=== PATIENT | male | born 1975 | race Caucasian/White ===

== ENCOUNTER 2022-10-16 09:31 | Inpatient (IN) | payer MEDICAID, SELFPAY ==
[2022-10-16 09:31] VITALS: BP 150/96; PULSE 83; RESP 16; TEMP 36.3; O2SAT 99; BMI 45.8
--- NOTE | 2022-10-16 10:39 | EDS_ITS ---
HPI History of Present Illness Chief Complaint: Substance Abuse Informant: patient Onset/Context/Timing Onset: Yesterday Context: Gradual Onset Timing: Continuous Worsened by: Nothing Relieved by: Nothing Associated Symptoms Associated Symptoms: Positive for vomiting*, diarrhea* and fever*; Negative for rash*, seizure, tremor, palpatations, change in mental status, suicidal ideation or homicidal ideation Narrative Narrative: Patient presents requesting opiate detox. Patient states he uses oral fentanyl. Patient states he uses approximately 8 to 10 pills/day. Patient states his last use was yesterday at approximately 5 PM. Patient admits to some nausea, vomiting, diarrhea. Patient admits to some subjective fevers and chills. Patient denies any suicidal or homicidal ideations. Patient denies any seizures or palpitations. Patient denies any prior detox. [facility] Medical History Arthritis Carpal tunnel syndrome on both sides Congestive heart failure (CHF) DDD (degenerative disc disease) Diabetes DVT (deep venous thrombosis) History of kidney cancer Hx of bladder cancer Home Medications cholecalciferol (vitamin D3) 25 mcg (1,000 unit) tablet (Vitamin D3) 25 mcg PO DAILY SUPPLEMENT 10/16/22 [History Last Taken 1 Week Ago ~10/09/22] metformin 500 mg tablet,extended release 24 hr 1,000 mg PO DAILY DIABETES 10/16/22 [History Last Taken 10/15/22] omega-3 300 mg-dha 120 mg-epa 180 mg-fish oil 1,000 mg capsule 1 cap PO DAILY SUPPLEMENT 10/16/22 [History Last Taken 10/15/22] Allergy/AdvReac Type Severity Reaction Status Date / Time acetaminophen [From [place]] AdvReac Upset Verified 10/16/22 09:35 Stomach hydrocodone [From [place]] AdvReac Upset Verified 10/16/22 09:35 Stomach naproxen AdvReac Upset Verified 10/16/22 09:35 Stomach Surgical History History of right nephrectomy Social History Smoking Status: Current every day smoker tobacco type: cigarettes ROS ROS ED Constitutional Constitutional ED: Reports chills, subjective and sweats; Denies fever(s) Eyes Eyes: Denies blurry vision or change in vision ENT ENT ED: Reports rhinorrhea; Denies sore throat Cardiovascular Cardiovascular: Denies chest pain or palpitations Respiratory/Chest Respiratory/Chest: Reports cough; Denies dyspnea Gastrointestinal Gastrointestinal: Reports diarrhea, nausea and vomiting Genitourinary Genitourinary ED: Reports hematuria and urinary frequency; Denies dysuria Musculoskeletal Musculoskeletal: Reports back pain and neck pain Integumentary Denies abscess or rash Neurologic Neurologic: Denies headache(s) or weakness Allergic/Immunologic Allergic/Immunologic ED: Denies mouth swelling or urticaria EXAM Physical Exam Const Vital Signs: 10/16/22 09:31 Temperature 97.4 F L Temperature Source Temporal Pulse Rate 83 Respiratory Rate 16 Blood Pressure 150/96 H Blood Pressure Mean 114 Pulse Ox 99 Oxygen Delivery Method Room Air Positive well nourished, well developed and obese General Appearance ED: well developed and NAD Nutritional Appearance: obese HEENT Reports moist mucous membranes Neck supple and no JVD Resp normal respiratory effort and clear to auscultation bilaterally Cardio regular rate, regular rhythm and no murmurs GI normal to inspection, nondistended, normoactive bowel sounds and non-tender Palpation: soft Extremity normal to inspection Extremity Narrative: There is mild tenderness over the right calf. There is some pain with dorsiflexion of the right ankle. There is mild edema. Pedal pulses are equal bilaterally. Sensation was intact to light touch in all digits. Capillary refill was less than 2 seconds in all digits. General Extremety ED: Yes tenderness Neuro oriented x3, CN's II-XII intact bilaterally and no sensory deficits noted Sensorium / Orientation: alert Motor Exam: strength 5/5 throughout Psych mental status grossly normal Skin no rashes or lesions noted MDM MDM MDM Narrative Medical decision making narrative: Basic labs were obtained. Venous duplex of the right lower extremity was obtained. There is no evidence of DVT. Bleeding return to the CBC was within normal limits. Comprehensive metabolic profile was essentially within normal limits. Anion gap was normal. Urine tox screen was negative. Serum alcohol level was negative. Case was discussed with the hospitalist. He will admit the patient for detox. Patient understood and was agreeable with plan. All quest ions were answered. Lab Data Attestation: I reviewed the patient's lab results. Labs: Laboratory Results - last 24 hr 11/10/16/22 10/16/22 11:30 11:39 11:39 WBC 10.0 RBC 5.27 Hgb 15.9 Hct 47.3 MCV 89.8 MCH 30.2 MCHC 33.6 RDW Std Deviation 42.7 RDW Coeff of Adi 13.0 Plt Count 230 MPV 10.0 Immature Gran % (Auto) 0.300 Neut % (Auto) 69.3 Lymph % (Auto) 22.4 [place] % (Auto) 6.4 Eos % (Auto) 1.2 Baso % (Auto) 0.4 Absolute Neuts (auto) 7.0 Absolute Lymphs (auto) 2.25 Nucleated RBC % 0 Sodium 134 L Potassium 4.5 Chloride 102 Carbon Dioxide 28.0 Anion Gap 4 L BUN 14 Creatinine 1.01 Estim Creat Clear Calc 90.42 Est GFR (MDRD) Af Amer 101 Est GFR (MDRD) Non-Af 84 BUN/Creatinine Ratio 13.9 Glucose 169 H Calcium 9.0 Total Bilirubin 0.40 AST 13 L ALT 24 Alkaline Phosphatase 82 Total Protein 7.9 Albumin 3.3 Globulin 4.6 H Albumin/Globulin Ratio 0.7 L Urine Opiates Screen NEGATIVE Urine Methadone Screen NEGATIVE Ur Barbiturates Screen NEGATIVE Ur Phencyclidine Scrn NEGATIVE Ur Amphetamines Screen NEGATIVE MDMA (Ecstasy) Screen NEGATIVE U Benzodiazepines Scrn NEGATIVE Urine Cocaine Screen NEGATIVE U Cannabinoids Screen NEGATIVE Ur Drug Screen Comment Ethyl Alcohol 10/16/22 11:39 WBC RBC Hgb Hct MCV MCH MCHC RDW Std Deviation RDW Coeff of Adi Plt Count MPV Immature Gran % (Auto) Neut % (Auto) Lymph % (Auto) [place] % (Auto) Eos % (Auto) Baso % (Auto) Absolute Neuts (auto) Absolute Lymphs (auto) Nucleated RBC % Sodium Potassium Chloride Carbon Dioxide Anion Gap BUN Creatinine Estim Creat Clear Calc Est GFR (MDRD) Af Amer Est GFR (MDRD) Non-Af BUN/Creatinine Ratio Glucose Calcium Total Bilirubin AST ALT Alkaline Phosphatase Total Protein Albumin Globulin Albumin/Globulin Ratio Urine Opiates Screen Urine Methadone Screen Ur Barbiturates Screen Ur Phencyclidine Scrn Ur Amphetamines Screen MDMA (Ecstasy) Screen U Benzodiazepines Scrn Urine Cocaine Screen U Cannabinoids Screen Ur Drug Screen Comment Ethyl Alcohol < 3.0 Discharge Plan Triage Chief Complaint: Substance Abuse ED Provider: Thomas Briones Dx/Rx/DC Orders Clinical Impression: Opiate withdrawal, Substance abuse Prescriptions: No Action metformin 500 mg Tablet Extended Release 24 Hr 1,000 mg PO DAILY cholecalciferol (vitamin D3) [Vitamin D3] 25 mcg (1,000 unit) Tablet 25 mcg PO DAILY omega 5-[id number]-fish oil 300 mg (120 mg- 180mg)-1,000 mg capsule 1 cap PO DAILY Primary Care Provider: REGIS WATTERS Referrals: REGIS WATTERS [Other] Disposition Disposition: Acute Care Hospital [facility]
--- NOTE | 2022-10-16 10:47 | VDLE_ITS ---
Reason For Study: LEG PAIN RIGHT LEFT GSV is normal. CFV is compressible, spontaneous, phasic, CFV is compressible, spontaneous, phasic, competent, and demonstrates normal competent and demonstrates normal augmentation. augmentation. FV is compressible, spontaneous, phasic, competent and demonstrates normal augmentation. POP V is compressible, spontaneous, phasic, competent and demonstrates normal augmentation. T/P Trunk is compressible. PTV is compressible. RT PerV is compressible. Procedure This is a venous duplex using B-mode, color flow and spectral Doppler. Exam performed portable in ED. The exam was diagnostic. A preliminary report was called and/or faxed to . VL/Venous Duplex US, Unilateral Interpretation Summary There is no evidence of right lower extremity deep vein thrombosis. Right great saphenous vein appears patent and compressible segmentally. Normal flow patterns left common f emoral vein Ordering Physician: Thomas Briones Performed By: Atul De La Cruz RVT
[2022-10-16 11:43] LABS: Absolute Lymphocyte Count 2.25 X10^3/uL (0.83-4.51); Basophil# 0.04 X10^3/uL; Basophil% 0.4 % (0-1); Eosinophil# 0.12 X10^3/uL; Eosinophils% 1.2 % (0-5); Hematocrit 47.3 % (40-54); Hemoglobin 15.9 g/dL (13.0-16.5); Lymphocyte # 2.25 X10^3/ul (0.83-4.51); Lymphocyte % 22.4 % (19-41); Mean Corp Hgb Conc 33.6 g/dL (32-36); Mean Corpuscular Hgb 30.2 pg (27.0-32.0); Mean Corpuscular Volume 89.8 fL (80-94); Monocyte# 0.64 X10^3/uL; Monocyte% 6.4 % (0-10); NRBC Flagged by Analyzer 0 % (0-5); Neutrophil # 6.95 X10^3/uL (2.7-7.7); Neutrophil % 69.3 % (47-70); Platelet Count 230 K/mm3 (150-450); RBC Distribution Width SD 42.7 fl (35.1-43.9); Red Blood Count 5.27 M/mm3 (4.6-6.2)
[2022-10-16 11:56] LABS: International Normalized Ratio 1.1
[2022-10-16 11:58] LABS: Alcohol, Blood (Medical)-Serum < 3.0 mg/dL
[2022-10-16 12:01] LABS: ALB/GLOB Ratio 0.7 RATIO (0.9-2.4); AST(SGOT) 13 U/L (15-37); Alanine Aminotransfer ALT/SGPT 24 U/L (16-61); Albumin, Serum 3.3 g/dL (3.2-5.0); Alkaline Phosphatase 82 U/L (45-117); Anion Gap 4 (5-15); BUN 14 mg/dL (7-18); BUN/Creat Ratio 13.9 RATIO (10-20); Chloride 102 mmol/L (98-107); Creatinine, Serum 1.01 mg/dL (0.70-1.30); EST Glomerular Filtration Rate 84 mL/min (>60); Est Glom Filt Rate - Afr Amer 101 mL/min (>60); Estimated Creatinine Clearance 90.42 ml/min; Globulin 4.6 g/dL (2.2-4.2); Glucose 169 mg/dL (74-106); Potassium 4.5 mmol/L (3.5-5.1); Protein, Total 7.9 g/dL (6.4-8.2); Sodium Level 134 mmol/L (136-145)
[2022-10-16 12:10] LABS: Amphetamine Urine VISTA NEGATIVE (<1000 ng/mL); Barbiturate Urine VISTA NEGATIVE (< 200 ng/mL); Benzodiazepine Urine VISTA NEGATIVE (< 200 ng/mL); Cocaine Urine VISTA NEGATIVE (< 300 ng/mL); Ecstacy Urine VISTA NEGATIVE (< 500 ng/mL); Methadone Urine VISTA NEGATIVE (< 300 ng/mL); PCP Urine VISTA NEGATIVE (< 25 ng/mL); THC Urine VISTA NEGATIVE (< 50 ng/mL); Vista UDS pH Range 7
[2022-10-16 12:44] LABS: Partial Thromboplast Time 28.1 Seconds (24.1-36.2)
--- NOTE | 2022-10-16 13:28 | PCM.HP.STD ---
[facility] - General General Date of Admission: 10/16/22 Date of Service: 10/16/22 Chief Complaint: opiate withdrawal treatment. HPI Narrative KAY WATSON, is a 46 M who presents requesting treatment for acute opiate withdrawal. Patient takes 8 to 10 30 mg tablets of fentanyl. He states the fentanyl is pressed by dealer that he gets some from him. He is unsure about the production quality manager of the actual fentanyl. His last use was 5 PM yesterday. His current symptoms are some bunnies, some nausea. [facility] Medical History (Updated 10/16/22 @ 13:[address] Thomas Fermin DO) Arthritis Cancer with unknown primary site Carpal tunnel syndrome on both sides Congestive heart failure (CHF) DDD (degenerative disc disease) Diabetes DVT (deep venous thrombosis) History of kidney cancer Hx of bladder cancer Home Medications cholecalciferol (vitamin D3) 25 mcg (1,000 unit) tablet (Vitamin D3) 25 mcg PO DAILY SUPPLEMENT 10/16/22 [History Last Taken 1 Week Ago ~10/09/22] metformin 500 mg tablet,extended release 24 hr 1,000 mg PO DAILY DIABETES 10/16/22 [History Last Taken 10/15/22] omega-3 300 mg-dha 120 mg-epa 180 mg-fish oil 1,000 mg capsule 1 cap PO DAILY SUPPLEMENT 10/16/22 [History Last Taken 10/15/22] Allergy/AdvReac Type Severity Reaction Status Date / Time acetaminophen [From [place]] AdvReac Upset Verified 10/16/22 09:35 Stomach hydrocodone [From [place]] AdvReac Upset Verified 10/16/22 09:35 Stomach naproxen AdvReac Upset Verified 10/16/22 09:35 Stomach Family History (Updated 10/16/22 @ 13:[address] Thomas Fermin DO) Mother Addiction Surgical History History of right nephrectomy Social History (Updated 10/16/22 @ 13:[address] Thomas Fermin DO) Smoking Status: Heavy Smoker (>10/day) SHANAE Caceres Has chronic swelling in his lower extremities with the right being greater than the left after history of DVT. All review of systems were negative except as mentioned above in the history of present illness and the other review of systems. Vital Signs Vital Signs Vital Signs: 10/16/22 09:31 Temperature 36.3 C L Temperature Source Temporal Pulse Rate 83 Respiratory Rate 16 Blood Pressure 150/96 H Blood Pressure Mean 114 Pulse Ox 99 Oxygen Delivery Method Room Air Weight Weight: 140.614 kg Body Mass Index (BMI) 45.8 Physical Exam Const alert and no apparent distress Constitutional Narrative: Up in a chair. No distress. HEENT normocephalic and head/scalp atraumatic Resp normal respiratory effort, no retractions, no use of accessory muscles and clear to auscultation bilaterally Cardio regular rate, regular rhythm, S1 normal heart sound and S2 normal heart sound GI normal to inspection, nondistended, normoactive bowel sounds, soft to palpation, non-tender and non-distended Extremity Extremity Narrative: Lymphedematous changes in lower extremities with the right lower extremity being greater than the left Neuro oriented x3 Results Lab / Micro Data Result Diagrams: 10/16/22 11:39 10/16/22 11:39 Labs: Laboratory Results - last 24 hr 10/16/22 11:30: Urine Opiates Screen NEGATIVE, Urine Methadone Screen NEGATIVE, Ur Barbiturates Screen NEGATIVE, Ur Phencyclidine Scrn NEGATIVE, Ur Amphetamines Screen NEGATIVE, MDMA (Ecstasy) Screen NEGATIVE, U Benzodiazepines Scrn NEGATIVE, Urine Cocaine Screen NEGATIVE, U Cannabinoids Screen NEGATIVE, Ur Drug Screen Comment 10/16/22 11:39: WBC 10.0, RBC 5.27, Hgb 15.9, Hct 47.3, MCV 89.8, MCH 30.2, MCHC 33.6, RDW Std Deviation 42.7, RDW Coeff of Adi 13.0, Plt Count 230, MPV 10.0, Immature Gran % (Auto) 0.300, Neut % (Auto) 69.3, Lymph % (Auto) 22.4, [place] % (Auto) 6.4, Eos % (Auto) 1.2, Baso % (Auto) 0.4, Absolute Neuts (auto) 7.0, Absolute Lymphs (auto) 2.25, Nucleated RBC % 0 10/16/22 11:39: PT 14.0, INR 1.1, APTT 28.1 10/16/22 11:39: Sodium 134 L, Potassium 4.5, Chloride 102, Carbon Dioxide 28.0, Anion Gap 4 L, BUN 14, Creatinine 1.01, Estim Creat Clear Calc 90.42, Est GFR (MDRD) Af Amer 101, Est GFR (MDRD) Non-Af 84, BUN/Creatinine Ratio 13.9, Glucose 169 H, Calcium 9.0, Total Bilirubin 0.40, AST 13 L, ALT 24, Alkaline Phosphatase 82, Total Protein 7.9, Albumin 3.3, Globulin 4.6 H, Albumin/Globulin Ratio 0.7 L 10/16/22 11:39: Ethyl Alcohol < 3.0 Assessment & Plan Assessment/Plan (1) Opiate withdrawal: PLAN: Initiate buprenorphine taper as well as additional medications to help with withdrawal symptoms. Addiction medicine to see and to facilitate outpatient program. Patient is here with a friend who is his roommates and the plan is to quit together as they both use fentanyl. States his friend does not use alcohol. I talked to the patient to that if the friend has to leave earlier or later what his backup plan. He states he does not have anyone to contact. (2) DVT (deep venous thrombosis): PLAN: Patient had a history of a DVT back in October 2021. Was receiving injections with enoxaparin which is remained was giving him but then the roommate moved out and stopped giving insulin the patient could not muster the wherewithal to give himself a Lovenox injection so stopped. So patient has roughly been without anticoagulation for 8 to 9 months. Duplex was performed the emergency room which was reportedly negative. (3) Congestive heart failure (CHF): PLAN: Unclear type Compensated this time Patient had been taking some medication for his heart failure that was making him loopy that he stopped taking it. He does not know what that medication was. We will request records from [place] (4) Diabetes: PLAN: Type II Continue with metformin Check an A1c Sliding scale insulin (5) Cancer with unknown primary site: PLAN: I am not sure if this is truly unknown where the patient just does not know what type cancer he has. He has a reported history of kidney and bladder cancer. Is unclear if this is the cancer is referring to her if this is a completely different cancer that is not been fully evaluated. Patient has not been following up with oncology. Request records from [place] PLAN: Plan VTE prophylaxis: Given the patient's history of DVT and cancer, will initiate enoxaparin. Charges/Coding Visit Charges Inpatient E&M: 18621 Init Hosp L2
[2022-10-16 13:39] VITALS: BP 150/96; PULSE 83; RESP 16; TEMP 36.3; O2SAT 99
[2022-10-16 14:12] LABS: Hemoglobin A1c 7.4 % (3.8-5.6)
[2022-10-16 14:41] VITALS: O2SAT 96
[2022-10-16 14:54] VITALS: BMI 45.8
[2022-10-16 15:09] VITALS: BP 143/90; PULSE 77; RESP 18; TEMP 36.4; O2SAT 96
[2022-10-16] MEDS: Buprenorphine HCl 2 MG TAB.SUBL SL (16:24)
[2022-10-16] MEDS: Gabapentin 300 MG Capsule PO (16:25)
[2022-10-16] MEDS: Methocarbamol 750 MG Tablet 1500 MG PO (16:25)
[2022-10-16] MEDS: cloNIDine HCl 0.1 MG Tablet PO (16:28)
[2022-10-16 17:10] LABS: Bedside Glucose 139 mg/dL (74-106)
--- NOTE | 2022-10-16 17:12 | ADDICTION ---
Client is a 46 year old male who was admitted this afternoon. He reports seeking detox on his own decision. Denies legal consequences. He is unemployed d/t health issues. He is with 3 adult children. Client is pleasant, answering all questions asked. Client reports he has extensive medical history that has led to opioid addiction. He shared his medical issues include Cancer (Bladder/kidney), Arthritis, Carpal Tunnel, Back issues. He reported he was informed he has cancer somewhere in his body however his heart is too weak for further testing. This is his first time addressing AoD use. He has refused all referrals for AoD treatment. He shared he is aware of the 12-step meetings as his mother and step-father are both in recovery. He feels he has adequate sober support with family and his roommate (who is also seeking AoD treatment). This nurse offered peer support visit, which client refused. No referrals made d/t client refusing.
[2022-10-16] MEDS: Loperamide 2 MG Capsule PO (18:55)
[2022-10-16] MEDS: Dicyclomine 10 MG Capsule 20 MG PO (18:55)
[2022-10-16] MEDS: hydrOXYzine PAM 25 MG Capsule 50 MG PO (18:55)
[2022-10-16] MEDS: traZODone 100 MG Tablet PO (20:17)
[2022-10-16 21:09] VITALS: BP 119/76; PULSE 77; RESP 16; TEMP 36.7; O2SAT 98
[2022-10-17] MEDS: Methocarbamol 750 MG Tablet 1500 MG PO ×4 (00:20→20:09)
[2022-10-17] MEDS: cloNIDine HCl 0.1 MG Tablet PO ×2 (00:20→15:54)
[2022-10-17] MEDS: Buprenorphine HCl 2 MG TAB.SUBL SL ×4 (00:20→23:47)
[2022-10-17] MEDS: hydrOXYzine PAM 25 MG Capsule 50 MG PO (00:55)
[2022-10-17] MEDS: Gabapentin 300 MG Capsule PO ×3 (01:58→20:10)
[2022-10-17 03:09] VITALS: BP 116/71; PULSE 76; RESP 16; TEMP 36.5; O2SAT 94
--- NOTE | 2022-10-17 06:14 | PN.HOSP_ITS ---
Subjective Subjective Rough night due to back pain. Objective Data Objective Data Vital Signs: Vital Signs Temp Pulse Resp BP Pulse Ox O2 Del Method 36.5 C L 76 16 116/71 94 Room Air 10/17/22 03:09 10/17/22 03:09 10/17/22 03:09 10/17/22 03:09 10/17/22 03:09 10/17/22 03:09 Oxygen Delivery Method Room Air Weight: 140.614 kg Body Mass Index (BMI) 45.8 Intake & Output: Intake and Output for Last 24 Hours 10/15/22 10/16/22 10/17/22 23:59 23:59 23:59 Intake Total 700 / 700 Balance 700 / 700 Lab / Micro Data Result Diagrams: 10/16/22 11:39 10/16/22 11:39 Labs: Laboratory Results - last 24 hr 10/16/22 11:30: Urine Opiates Screen NEGATIVE, Urine Methadone Screen NEGATIVE, Ur Barbiturates Screen NEGATIVE, Ur Phencyclidine Scrn NEGATIVE, Ur Amphetamines Screen NEGATIVE, MDMA (Ecstasy) Screen NEGATIVE, U Benzodiazepines Scrn NEGATIV E, Urine Cocaine Screen NEGATIVE, U Cannabinoids Screen NEGATIVE, Ur Drug Screen Comment 10/16/22 11:39: WBC 10.0, RBC 5.27, Hgb 15.9, Hct 47.3, MCV 89.8, MCH 30.2, MCHC 33.6, RDW Std Deviation 42.7, RDW Coeff of Adi 13.0, Plt Count 230, MPV 10.0, Immature Gran % (Auto) 0.300, Neut % (Auto) 69.3, Lymph % (Auto) 22.4, [place] % (Auto) 6.4, Eos % (Auto) 1.2, Baso % (Auto) 0.4, Absolute Neuts (auto) 7.0, Absolute Lymphs (auto) 2.25, Nucleated RBC % 0 10/16/22 11:39: PT 14.0, INR 1.1, APTT 28.1 10/16/22 11:39: Sodium 134 L, Potassium 4.5, Chloride 102, Carbon Dioxide 28.0, Anion Gap 4 L, BUN 14, Creatinine 1.01, Estim Creat Clear Calc 90.42, Est GFR (MDRD) Af Amer 101, Est GFR (MDRD) Non-Af 84, BUN/Creatinine Ratio 13.9, Glucose 169 H, Calcium 9.0, Total Bilirubin 0.40, AST 13 L, ALT 24, Alkaline Phosphatase 82, Total Protein 7.9, Albumin 3.3, Globulin 4.6 H, Albumin/Globulin Ratio 0.7 L 10/16/22 11:39: Ethyl Alcohol < 3.0 10/16/22 11:39: Hemoglobin A1c 7.4 H 10/16/22 16:23: POC Glucose 139 H Radiography Diagnostic Testing: Radiology Impression Venous Doppler Study 10/16/22 10:47 Interpretation Summary There is no evidence of right lower extremity deep vein thrombosis. Right great saphenous vein appears patent and compressible segmentally. Normal flow patterns left common femoral vein Ordering Physician: Thomas Briones Performed By: Atul De La Cruz RVT Physical Exam Const Constitutional Narrative: Lying in bed. Awake but does not open his eyes nor steps any eye contact. Resp normal respiratory effort, no retractions, no use of accessory muscles and clear to auscultation bilaterally Cardio regular rate, regular rhythm, S1 normal heart sound and S2 normal heart sound GI normal to inspection, nondistended, normoactive bowel sounds, soft to palpation, non-tender and non-distended Assessment & Plan Assessment/Plan (1) Opiate withdrawal: PLAN: Initiate buprenorphine taper as well as additional medications to help with withdrawal symptoms. Addiction medicine to see and to facilitate outpatient program. Patient is here with a friend who is his roommates and the plan is to quit together as they both use fentanyl. States his friend does not use alcohol. I talked to the patient to that if the friend has to leave earlier or later what his backup plan. He states he does not have anyone to contact. (2) DVT (deep venous thrombosis): PLAN: Patient had a history of a DVT back in October 2021. Was receiving injections with enoxaparin which is remained was giving him but then the room mate moved out and stopped giving insulin the patient could not muster the wherewithal to give himself a Lovenox injection so stopped. So patient has roughly been without anticoagulation for 8 to 9 months. Duplex was performed the emergency room which was reportedly negative. (3) Congestive heart failure (CHF): PLAN: Unclear type Compensated this time Patient had been taking some medication for his heart failure that was making him loopy that he stopped taking it. He does not know what that medication was. We will request records from [place] (4) Diabetes: PLAN: Type II Continue with metformin A1c 7.4 Sliding scale insulin Fair control. 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 He has a reported history of kidney and bladder cancer. Is unclear if this is the cancer is referring to her if this is a completely different cancer that is not been fully evaluated. Patient has not been following up with oncology. Request records from [place] PLAN: Plan VTE prophylaxis: Given the patient's history of DVT and cancer, will initiate enoxaparin. Charges/Coding Visit Charges Inpatient E&M: 23160 Subs Hosp L2
[2022-10-17] MEDS: Insulin Lispro 100 UNIT/ML INSULN.PEN SC ×3 (06:24→16:00)
[2022-10-17 06:50] LABS: Bedside Glucose 210 mg/dL (74-106)
[2022-10-17 08:00] VITALS: BP 124/78; PULSE 82; RESP 16; TEMP 36.7; O2SAT 95
[2022-10-17] MEDS: metFORMIN (XR) 500 MG Tablet 1000 MG PO (08:34)
[2022-10-17] MEDS: Enoxaparin 40 MG/0.4 ML Syringe SC (08:34)
[2022-10-17] MEDS: Cholecalciferol (VIT D3) 25 MCG TABLET (1,000 UNITS) PO (08:34)
[2022-10-17 12:02] VITALS: BP 139/98; PULSE 99; RESP 16; TEMP 37; O2SAT 95
[2022-10-17] MEDS: Dicyclomine 10 MG Capsule 20 MG PO ×2 (12:09→20:09)
[2022-10-17 12:30] LABS: Bedside Glucose 237 mg/dL (74-106)
[2022-10-17 16:19] VITALS: BP 135/88; PULSE 90; RESP 16; TEMP 36.3; O2SAT 96
[2022-10-17 17:00] LABS: Bedside Glucose 190 mg/dL (74-106)
[2022-10-17] MEDS: traZODone 100 MG Tablet PO (20:10)
[2022-10-18 00:25] LABS: Bedside Glucose 143 mg/dL (74-106)
[2022-10-18 03:10] VITALS: BP 131/83; PULSE 72; RESP 14; TEMP 36.8; O2SAT 96
[2022-10-18 04:00] VITALS: BP 132/76; PULSE 69; RESP 14; TEMP 36.9; O2SAT 94
[2022-10-18] MEDS: cloNIDine HCl 0.1 MG Tablet PO ×2 (04:26→14:38)
[2022-10-18] MEDS: Methocarbamol 750 MG Tablet 1500 MG PO (04:26)
[2022-10-18] MEDS: Dicyclomine 10 MG Capsule 20 MG PO ×3 (04:26→22:10)
[2022-10-18] MEDS: Insulin Lispro 100 UNIT/ML INSULN.PEN SC ×2 (06:49→11:21)
[2022-10-18 07:15] LABS: Bedside Glucose 194 mg/dL (74-106)
--- NOTE | 2022-10-18 07:32 | PCM.PN.HOSP ---
Subjective Subjective complains of back pain. Has had chronically, no new developements. Objective Data Objective Data Vital Signs: Vital Signs Temp Pulse Resp BP Pulse Ox O2 Del Method 36.9 C 69 14 132/76 H 94 Room Air 10/18/22 04:00 10/18/22 04:00 10/18/22 04:00 10/18/22 04:00 10/18/22 04:00 10/18/22 04:00 Oxygen Delivery Method Room Air Weight: 140.614 kg Body Mass Index (BMI) 45.8 Intake & Output: Intake and Output for Last 24 Hours 10/16/22 10/17/22 10/18/22 23:59 23:59 23:59 Intake Total 700 / 700 1250 / 1250 Balance 700 / 700 1250 / 1250 Lab / Micro Data Result Diagrams: 10/16/22 11:39 10/16/22 11:39 Labs: Laboratory Results - last 24 hr 10/17/22 12:00: POC Glucose 237 H 10/17/22 15:59: POC Glucose 190 H 10/17/22 23:45: POC Glucose 143 H 10/18/22 06:41: POC Glucose 194 H Physical Exam Const alert and no apparent distress Constitutional Narrative: Lying in bed. Awake but does not open his eyes nor steps any eye contact. HEENT normocephalic and head/scalp atraumatic Resp normal respiratory effort, no retractions, no use of accessory muscles and clear to auscultation bilaterally Cardio regular rate, regular rhythm, S1 normal heart sound and S2 normal heart sound GI normal to inspection, nondistended, normoactive bowel sounds, soft to palpation, non-tender and non-distended Extremity Extremity Narrative: bilateral paraspinal lumbar muscle tenderness greater on the left than right. Neuro oriented x3 Assessment & Plan Assessment/Plan (1) Opiate withdrawal: PLAN: Initiate buprenorphine taper as well as additional medications to help with withdrawal symptoms. Addiction medicine to see and to facilitate outpatient program. Patient is here with a friend who is his roommates and the plan is to quit together as they both use fentanyl. States his friend does not use alcohol. I talked to the patient to that if the friend has to leave earlier or later what his backup plan. He states he does not have anyone to contact. Pt seen by addiction med on the and decline all referral for AoD treatment. He said he have adequate AoD resources at home. (2) DVT (deep venous thrombosis): PLAN: Patient had a history of a DVT back in October 2021. Was receiving injections with enoxaparin which is remained was giving him but then the roommate moved out and stopped giving insulin the patient could not muster the wherewithal to give himself a Lovenox injection so stopped. So patient has roughly been without anticoagulation for 8 to 9 months. Duplex was performed the emergency room which was reportedly negative. (3) Congestive heart failure (CHF): PLAN: Unclear type Compensated this time Patient had been taking some medication for his heart failure that was making him loopy that he stopped taking it. He does not know what that medication was. We will request records from [place] (4) Diabetes: PLAN: Type II Continue with metformin A1c 7.4 Sliding scale insulin Fair control. 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 He has a reported history of kidney and bladder cancer. Is unclear if this is the cancer is referring to her if this is a completely different cancer that is not been fully evaluated. Patient has not been following up with oncology. Request records from [place] (6) Back pain: PLAN: consistent with muscle strain. Will start PRN cyclobenzaprine. PLAN: Plan VTE prophylaxis: Given the patient's history of DVT and cancer, will initiate enoxaparin. Charges/Coding Visit Charges Inpatient E&M: 52005 Subs Hosp L2
[2022-10-18 08:00] VITALS: BP 125/68; PULSE 75; RESP 16; TEMP 36.7; O2SAT 98
[2022-10-18] MEDS: Enoxaparin 40 MG/0.4 ML Syringe SC (08:13)
[2022-10-18] MEDS: Buprenorphine HCl 2 MG TAB.SUBL SL ×2 (08:13→16:32)
[2022-10-18] MEDS: hydrOXYzine PAM 25 MG Capsule 50 MG PO ×2 (08:13→22:03)
[2022-10-18] MEDS: metFORMIN (XR) 500 MG Tablet 1000 MG PO (08:14)
[2022-10-18] MEDS: Cholecalciferol (VIT D3) 25 MCG TABLET (1,000 UNITS) PO (08:14)
[2022-10-18 11:50] LABS: Bedside Glucose 195 mg/dL (74-106)
[2022-10-18] MEDS: cycloBENZAPRine HCl 5 MG TABLET PO (14:38)
[2022-10-18] MEDS: Gabapentin 300 MG Capsule PO (14:38)
[2022-10-18 14:42] VITALS: BP 141/84; PULSE 79; RESP 16; TEMP 36.6; O2SAT 98
[2022-10-18 17:55] LABS: Bedside Glucose 134 mg/dL (74-106)
[2022-10-18 22:00] VITALS: BP 121/63; PULSE 73; RESP 14; TEMP 37.1; O2SAT 96
[2022-10-18] MEDS: traZODone 100 MG Tablet PO (22:03)
[2022-10-18 22:46] LABS: Bedside Glucose 209 mg/dL (74-106)
[2022-10-19 03:58] VITALS: BP 135/79; PULSE 67; RESP 14; TEMP 36.7; O2SAT 97
[2022-10-19] MEDS: Buprenorphine HCl 2 MG TAB.SUBL SL (04:04)
[2022-10-19] MEDS: cloNIDine HCl 0.1 MG Tablet PO (04:04)
[2022-10-19] MEDS: cycloBENZAPRine HCl 5 MG TABLET PO ×2 (04:04→11:14)
[2022-10-19] MEDS: Dicyclomine 10 MG Capsule 20 MG PO (04:05)
[2022-10-19] MEDS: Insulin Lispro 100 UNIT/ML INSULN.PEN SC (06:22)
[2022-10-19 07:05] LABS: Bedside Glucose 183 mg/dL (74-106)
[2022-10-19 08:28] VITALS: BP 130/90; PULSE 89; RESP 16; TEMP 36.6; O2SAT 95
[2022-10-19] MEDS: metFORMIN (XR) 500 MG Tablet 1000 MG PO (08:32)
[2022-10-19] MEDS: Cholecalciferol (VIT D3) 25 MCG TABLET (1,000 UNITS) PO (08:32)
[2022-10-19] MEDS: Gabapentin 300 MG Capsule PO (08:37)
[2022-10-19] MEDS: hydrOXYzine PAM 25 MG Capsule 50 MG PO (08:37)
--- NOTE | 2022-10-19 10:09 | DCINST_ITS ---
Discharge Instructions Diet Discharge Diet: 1800 Calorie Control Diet Activity Discharge Activity: Return to Normal Activity Weight Bearing Status: Full weight bearing Follow Up Care Test Results: Test results from this visit will be discussed in further detail at your follow- up appointment, if applicable. Discharge Plan Admission Admit Date/Time: 10/16/22 13:24 Primary Reason for Your Visit: opiate withdrawal Attending Provider: Marbin Shafer Primary Care Provider: REGIS WATTERS Consulting Providers: Thomas Fermin Discharge Orders/Prescriptions Prescriptions: New nicotine [Nicoderm CQ] 21 mg/24 hr patch 24 hour 1 patch transdermal DAILY Qty: 30 0RF Continued metformin 500 mg Tablet Extended Release 24 Hr 1,000 mg PO DAILY cholecalciferol (vitamin D3) [Vitamin D3] 25 mcg (1,000 unit) Tablet 25 mcg PO DAILY omega 6-jjv-wlu-fish oil 300 mg (120 mg- 180mg)-1,000 mg capsule 1 cap PO DAILY Referrals / Follow Up: REGIS WATTERS [Other] REGIS WATTERS [Other] Disposition Disposition (needs filled in before D/C Order can be placed): Home, Self Care
--- NOTE | 2022-10-19 10:26 | PCM.DC.SUM ---
Providers Date of Admission: 10/16/22 Date of Discharge: 10/19/22 Primary Care Physician: REGIS WATTERS Reason For Visit: OPIATE WITHDRAWAL Diagnosis Discharge Diagnosis (1) Opiate withdrawal: Status: Acute Code(s): F11.93 - Opioid use, unspecified with withdrawal (2) DVT (deep venous thrombosis): Status: Inactive Code(s): I82.409 - Acute embolism and thrombosis of unspecified deep veins of unspecified lower extremity (3) Congestive heart failure (CHF): Status: Ruled-out Code(s): I50.9 - Heart failure, unspecified (4) Diabetes: Status: Chronic Code(s): E11.9 - Type 2 diabetes mellitus without complications (5) Cancer with unknown primary site: Status: Inactive Code(s): C80.1 - Malignant (primary) neoplasm, unspecified (6) Back pain: Status: Acute Code(s): M54.9 - Dorsalgia, unspecified Plan Discharge diagnosis: #1 acute opiate withdrawal #2 chronic opioid usage #3 type 2 diabetes Medications at Discharge Home Medications cholecalciferol (vitamin D3) 25 mcg (1,000 unit) tablet (Vitamin D3) 25 mcg PO DAILY SUPPLEMENT 10/16/22 metformin 500 mg tablet,extended release 24 hr 1,000 mg PO DAILY DIABETES 10/16/22 omega-3 300 mg-dha 120 mg-epa 180 mg-fish oil 1,000 mg capsule 1 cap PO DAILY SUPPLEMENT 10/16/22 nicotine 21 mg/24 hr daily transdermal patch (Nicoderm CQ) 1 patch transdermal DAILY #30 patches 10/19/22 Hospital Course Operations None Procedures None Summary of Care Provided Minutes Spent on Discharge: 31 Hospital Course: This 46-year-old white male was seen in the emergency room at [facility] requesting services for opiate detox. Patient stated that he used oral fentanyl. Labs obtained in the emergency room were remarkable for glucose of 169 and patient's tox screen was negative for illicit drugs. Patient was admitted to [place] [address], orders were entered using the opiate detox order set and he was seen by addiction social services director. Patient refused placement in an inpatient detox center and refused to set up follow-up with a detox program after discharge. Patient was minimally symptomatic during his hospitalization On 10/19/2022, patient was seen and examined: On examination he appeared in good health and spirits. Vital signs as documented. Skin warm and dry and without overt rashes. Neck without JVD, neck was supple, trachea midline, thyroid was normal. Lungs clear bilaterally, normal air movement was noted. Heart exam notable for regular rhythm, normal sounds and absence of murmurs, rubs or gallops. Abdomen unremarkable and without evidence of organomegaly, masses, or abdominal aortic enlargement. Bowel sounds are present, abdomen is not distended. Extremities nonedematous, no cyanosis was noted, no clubbing was noted. Neuro: Cranial nerves II through XII are grossly intact, no focal motor deficits were noted, sensation to light touch and pinprick intact, motor exam 5/5 throughout. Psych: Patient is alert and oriented x3, he does not appear anxious or depressed, he does not appear agitated. Patient appears stable for discharge on 10/19/2022. Weight / BMI Weight Weight: 140.614 kg Body Mass Index (BMI) 45.8 ABG / Lab / Microbiology Data Result Diagrams: 10/16/22 11:39 10/16/22 11:39 Laboratory: Laboratory Results - last 24 hr 10/18/22 11:20: POC Glucose 195 H 10/18/22 16:37: POC Glucose 134 H 10/18/22 22:02: POC Glucose 209 H 10/19/22 06:20: POC Glucose 183 H D/C Instructions Discharge Diet: 1800 Calorie Control Diet Weight Bearing Status: Full weight bearing Meaningful Use Info Meaningful Use Diagnoses (Choose all that apply): None applicable Discharge Plan Admission Admit Date/Time: 10/16/22 13:24 Primary Reason for Your Visit: opiate withdrawal Attending Provider: Marbin Shafer Primary Care Provider: REGIS WATTERS Consulting Providers: Thomas Fermin Discharge Orders/Prescriptions Prescriptions: New nicotine [Nicoderm CQ] 21 mg/24 hr patch 24 hour 1 patch transdermal DAILY Qty: 30 0RF Continued metformin 500 mg Tablet Extended Release 24 Hr 1,000 mg PO DAILY cholecalciferol (vitamin D3) [Vitamin D3] 25 mcg (1,000 unit) Tablet 25 mcg PO DAILY omega 3-qzj-rex-fish oil 300 mg (120 mg- 180mg)-1,000 mg capsule 1 cap PO DAILY Referrals / Follow Up: REGIS WATTERS [Other] - 10/26/22 9:20 am Disposition Disposition (needs filled in before D/C Order can be placed): Home, Self Care Charges/Coding Visit Charges Inpatient E&M: 32151 Disch Hosp
[2022-10-19 11:10] VITALS: BP 134/90; PULSE 80; RESP 18; TEMP 36.7; O2SAT 97
--- NOTE | 2022-10-19 11:25 | PHA.DC.MC ---
Pharmacy Service has performed discharge medication reconciliation and counseling for this patient. 1. NICOTINE PATCH 21MG 1 PATCH TOPICALLY DAILY The patient's discharge medication list was reviewed for discrepancies and discrepancies were resolved. Home Medications cholecalciferol (vitamin D3) 25 mcg (1,000 unit) tablet (Vitamin D3) 25 mcg PO DAILY SUPPLEMENT 10/16/22 metformin 500 mg tablet,extended release 24 hr 1,000 mg PO DAILY DIABETES 10/16/22 omega-3 300 mg-dha 120 mg-epa 180 mg-fish oil 1,000 mg capsule 1 cap PO DAILY SUPPLEMENT 10/16/22 nicotine 21 mg/24 hr daily transdermal patch (Nicoderm CQ) 1 patch transdermal DAILY #30 patches 10/19/22 The patient was counseled on the following discharge medications and changes in medications for homegoing were reviewed. The Reason for Use, instructions for use, and potential side effects were reviewed for all new medications. The patient's questions regarding all of their medications were answered. The patient was able to verbally demonstrate an understanding of their discharge medications. Patient counseled by pharmacy informatics managerSuzanne.
== END 2022-10-19 11:17 | disposition home or self-care (01) | DRG 773 ==
LOC: ED 12:39 → MS3 13:46
PROVIDERS: Emergency Provider Emergency Medicine; Visit Provider Internal Medicine
DX: F11.23 Opioid dependence with withdrawal (principal); C80.1 Malignant (primary) neoplasm, unspecified; I50.9 Heart failure, unspecified; E11.9 Type 2 diabetes mellitus without complications; F19.230 Other psychoactive substance dependence with withdrawal, uncomplicated; F17.210 Nicotine dependence, cigarettes, uncomplicated; M54.9 Dorsalgia, unspecified; Z79.891 Long term (current) use of opiate analgesic; Z86.718 Personal history of other venous thrombosis and embolism; G89.29 Other chronic pain
CPT/HCPCS: 36415; 80053; 80307; 82077; 82962; 83036; 85025; 85610; 85730; 93971; 97802; 99283